=== PATIENT | female | born 1945 | race Caucasian/White ===

== ENCOUNTER 2021-04-12 20:51 | Emergency (ER) | payer MEDICARE, MEDICAID ==
[~2021-04-12] VITALS: Ht 157.5 cm; Wt 75.0 kg
[2021-04-12 21:20] VITALS: BP 139/66
[2021-04-12] MEDS ORDERED: MIRT-89 PO (21:20)
[2021-04-12] MEDS ORDERED: BUME1TAB34 PO (21:20)
[2021-04-12] MEDS ORDERED: CHOL200016 PO (21:20)
[2021-04-12] MEDS ORDERED: ATEN-73 PO (21:20)
[2021-04-12] MEDS ORDERED: APIX5TAB PO (21:20)
[2021-04-12] MEDS ORDERED: METF-960 PO (21:20)
[2021-04-12] MEDS ORDERED: ALEN35TA41 PO (21:20)
[2021-04-12] MEDS ORDERED: VALS160T2 PO (21:20)
[2021-04-12] MEDS ORDERED: ATOR10TA84 PO (21:20)
[2021-04-12] MEDS ORDERED: SERT-162 PO (21:20)
[2021-04-12] MEDS ORDERED: NIFE-79 PO (21:20)
[2021-04-12] MEDS ORDERED: DONE10TA8 PO (21:20)
[2021-04-12] MEDS ORDERED: HYDR25TA84 PO (21:20)
[2021-04-12] MEDS ORDERED: GABA-1181 PO (21:20)
[2021-04-12] MEDS ORDERED: DOCO1CAP5 PO (21:20)
== END 2021-04-12 22:41 | disposition home or self-care (01) ==
LOC: EMS 20:55
DX: T83.028A Displacement of other urinary catheter, initial encounter (principal); J45.909 Unspecified asthma, uncomplicated; E11.9 Type 2 diabetes mellitus without complications; K21.9 Gastro-esophageal reflux disease without esophagitis; E78.00 Pure hypercholesterolemia, unspecified; I10 Essential (primary) hypertension; Z79.84 Long term (current) use of oral hypoglycemic drugs; Y84.6 Urinary catheterization as the cause of abnormal reaction of the patient, or of later complication, without mention of misadventure at the time of the procedure
CPT/HCPCS: 51702; 99284; Z7502